=== PATIENT | male | born 1995 | race Caucasian/White ===

== ENCOUNTER 2017-03-07 14:11 | Emergency (ER) | payer OTHER ==
[~2017-03-07] VITALS: Ht 193 cm; Wt 63.5 kg
== END 2017-03-07 14:34 | disposition home or self-care (01) ==
LOC: ED 14:11
DX: Z00.8 Encounter for other general examination (principal)

== ENCOUNTER 2019-06-13 12:57 | Emergency (ER) | payer OTHER ==
[~2019-06-13] VITALS: Ht 193 cm; Wt 65.3 kg
[2019-06-13] MEDS ORDERED: DOXYCYCLINE MO100 M1 PO (13:06)
[2019-06-13] MEDS ORDERED: VENTOLIN HFA18 GM INH (15:08)
[2019-06-13] MEDS ORDERED: PREDNISONE20 MG PO (15:08)
== END 2019-06-13 15:42 | disposition home or self-care (01) ==
LOC: ED 12:57
DX: J40 Bronchitis, not specified as acute or chronic (principal); Z79.899 Other long term (current) drug therapy
CPT/HCPCS: 71046; 94640; 99283-25

== ENCOUNTER 2024-01-18 18:52 | Emergency (ER) | payer OTHER ==
[~2024-01-18] VITALS: Ht 193 cm; Wt 80.0 kg
[~2024-01-18 18:52] MED LIST: DOXYCYCLINE MO100 M1 PO; PREDNISONE20 MG PO; VENTOLIN HFA18 GM INH
[2024-01-18] MEDS ORDERED: DIPHTH,PERTUSS(ACELL),TET VAC 0.5 ML SYRINGE IM ONE (19:15)
[2024-01-18] MEDS ORDERED: AMOX TR-K CLV1 EAC1 PO (20:51)
[2024-01-18] MEDS ORDERED: AMOXICILLIN/CLAVULANATE K 875 MG HOME.PACK PO ONE (21:00)
[2024-01-18] MEDS ORDERED: HYDROCODONE BIT/ACETAMINOPHEN 5/325 MG 1 TAB HOME.PACK PO ONE (21:00)
[2024-01-18 21:07] VITALS: BP 123/66
== END 2024-01-18 21:08 | disposition home or self-care (01) ==
LOC: ED 18:52
DX: S61.032A Puncture wound without foreign body of left thumb without damage to nail, initial encounter (principal); Z79.52 Long term (current) use of systemic steroids
CPT/HCPCS: 73140; 90715; A9270

== ENCOUNTER 2025-04-03 12:36 | Observation (INO) | payer OTHER ==
[~2025-04-03] VITALS: Ht 193 cm; Wt 72.0 kg
[~2025-04-03 12:36] MED LIST changes: +AMOX TR-K CLV1 EAC1 PO
[2025-04-03 14:15] LABS: BASOPHILS 0.5 % (0.2-1.2); EOSINOPHILS 1.2 % (0.8-7.0); LYMPHOCYTES 24.0 % (21.8-53.1); MCH 30.5 PG (25.7-32.2); MCHC 34.2 g/dL (32.3-36.5); MCV 89.3 fL (79.0-92.2); MONOCYTES 9.2 % (5.3-12.2); NEUTROPHILS 64.8 % (34.0-67.9); RBC 4.78 M/uL (4.63-6.08)
[2025-04-03 14:29] LABS: ALT (SGPT) 87.0 U/L (14-59); AST (SGOT) 26.0 U/L (15-37); GLOMERULAR FILTRATION RATE,EST 122.0 mL/min (>60); PROTEIN, TOTAL 7.3 g/dL (6.4-8.2); UREA NITROGEN 12.0 mg/dL (7-18)
[2025-04-03] MEDS ORDERED: SODIUM CHLORIDE 0.9% 1,000 ML IV ONE (14:45)
[2025-04-03 15:48] LABS: BLOOD/HGB, URINE NEGATIVE (Negative); KETONE, URINE NEGATIVE (Negative); LEUK ESTERASE, URINE NEGATIVE (negative); NITRITE, URINE NEGATIVE (negative)
[2025-04-03] MEDS ORDERED: FAMOTIDINE 20 MG/ 2 ML VIAL IV ONE (16:15)
[2025-04-03] MEDS ORDERED: AMP/SULBACTAM SOD 3 GM in SODIUM CHLORIDE 0.9% 100 ML IV ONE (16:15)
[2025-04-03] MEDS ORDERED: MORPHINE SULFATE 10 MG/ML VIAL IV PRN (17:15)
[2025-04-03] MEDS ORDERED: LACTATED RINGER'S 1,000 ML IV SCH (17:15)
[2025-04-03] MEDS ORDERED: SEVOFLURANE 250 ML BTL INH ONE (17:29)
[2025-04-03 17:38] VITALS: BP 106/78
[2025-04-03] MEDS ORDERED: KETOROLAC TROMETHAMINE 30 MG/ML VIAL ONE (17:39)
[2025-04-03] MEDS ORDERED: SUGAMMADEX SODIUM 200 MG/2 ML ML ONE (17:39)
[2025-04-03] MEDS ORDERED: LIDOCAINE HCL 2% 5 ML SDV ONE (17:39)
[2025-04-03] MEDS ORDERED: ROCURONIUM BROMIDE 50 MG/5 ML SYR ONE (17:39)
[2025-04-03] MEDS ORDERED: MIDAZOLAM HCL 2 MG/2 ML VIAL ONE (17:39)
[2025-04-03] MEDS ORDERED: LIDOCAINE HCL 1% 30 ML SDV ONE (17:39)
[2025-04-03] MEDS ORDERED: DEXAMETHASONE SOD PHOS 4 MG/ML VIAL ONE (17:39)
[2025-04-03] MEDS ORDERED: fentaNYL citrate 100 MCG/2 ML VIAL ONE (17:40)
[2025-04-03] MEDS ORDERED: DEXTROSE 5% - LACTATED RINGERS 1,000 ML IV SCH (17:45)
[2025-04-03] MEDS ORDERED: HYDROmorphone HCL 1 MG/ML SYR IV PRN (17:45)
[2025-04-03] MEDS ORDERED: NALOXONE HCL 0.4 MG SYR IV PRN (19:00)
[2025-04-03] MEDS ORDERED: fentaNYL citrate 50 MCG/ML SDV IV PRN (19:00)
[2025-04-03] MEDS ORDERED: IBLOOD GLUCOSE TEST STRIP 1 EA TEST VI PRN (19:00)
[2025-04-03] MEDS ORDERED: TYLENOL EXTRA500 MG PO (19:10)
[2025-04-03] MEDS ORDERED: MOTRIN IB200 MG PO (19:10)
[2025-04-03] MEDS ORDERED: HYDROCODON-ACE1 EA10 PO (19:11)
[2025-04-03] MEDS ORDERED: IBUPROFEN 600 MG TAB PO PRN (19:30)
[2025-04-03] MEDS ORDERED: KETOROLAC TROMETHAMINE 30 MG/ML VIAL IV PRN (19:30)
[2025-04-03] MEDS ORDERED: ACETAMINOPHEN 500 MG TAB PO PRN (19:30)
[2025-04-03] MEDS ORDERED: HYDROCODONE/ACETA 5/325 TAB PO PRN (19:30)
[2025-04-03 20:27] VITALS: BP 133/71
[2025-04-03 20:30] VITALS: BP 133/71
[2025-04-03] MEDS ORDERED: FAMOTIDINE 20 MG/ 2 ML VIAL IV SCH (21:00)
[2025-04-03 21:20] VITALS: BP 124/66
[2025-04-03 22:36] VITALS: BP 131/71
[2025-04-04 01:40] VITALS: BP 126/76
[2025-04-04 02:02] VITALS: BP 126/76
[2025-04-04 06:23] VITALS: BP 124/76
[2025-04-04] MEDS ORDERED: AMOXICILLIN/CLAVULANATE K 500 MG TAB PO SCH (08:00)
[2025-04-04 08:51] VITALS: BP 112/70
[2025-04-04] MEDS ORDERED: IBUPROFEN600 MG PO (09:32)
[2025-04-04] MEDS ORDERED: HYDROCODON-ACE1 EA10 PO (09:32)
[2025-04-04] MEDS ORDERED: ACETAMINOPHEN500 MG PO (09:32)
--- NOTE | 2025-04-06 10:29 | PATH ---
[facility] [address] [facility] [place], [place] [address] Signed SPECIMEN(S): A APPENDIX SPECIMEN SOURCE: A. APPENDIX CLINICAL HISTORY: Acute appendicitis-gangrenous appendix. FINAL PATHOLOGIC DIAGNOSIS: Appendix, appendectomy: - Acute appendicitis with transmural necrosis and periappendicitis. DWS:xiao MICROSCOPIC EXAMINATION: Histologic sections of all submitted blocks are examined by light microscopy. These findings, together with the gross examination, support the pathologic diagnosis. GROSS DESCRIPTION: The specimen, labeled and designated "Gentis, T, " and designated on the requisition "gangrenous appendix," is received in formalin and consists of Specimen: Appendix with mesoappendix. Dimensions: 6.7 x 0.7 cm. Serosa: [place] and smooth with an area of dark red discoloration that is 3.1 cm in length and extends into the adjacent mesentery. Defect: Not grossly identified. Inking: Staple line is inked Blue. Mucosa: [place] and finely granular with a dusky red discoloration that corresponds to the serosal discoloration. Fecalith: Not grossly identified. Additional: None. Inspector Precision sections are submitted in (A1). FB (under the direct supervision of a pathologist) The Gross Description was prepared using a voice recognition system. The report was reviewed for accuracy; however, sound-alike word errors, addition and/or deletions may occur. If there is any question about this report, please contact Client Services. PERFORMING LABORATORY: Technical component was performed by [facility], [address] [place] [id number] (CLIA# [id number]). Professional interpretation was PATIENT NAME: MALINDA HAY PATHOLOGY DATE OF : [birth year] REPORT #: [id number] PHYSICIAN: WINNIEYTE PATHOLOGY PCP: OUMOU FLOR MD REPORT IS CONFIDENTIAL AND NOT TO BE RELEASED WITHOUT AUTHORIZATION [facility] [address] [facility] [place] [address] Signed performed by [facility]ology [facility], [address] [place] [address], [place] [address] (CLIA#: [id number]). Diagnostician: Chi Rider MD Pathologist Electronically Signed 04/06/2025 Copies: ~ PATIENT NAME: MALINDA HAY PATHOLOGY DATE OF : [birth year] REPORT #: [id number] PHYSICIAN: SAMANTHA PATHOLOGY PCP: OUMOU FLOR MD REPORT IS CONFIDENTIAL AND NOT TO BE RELEASED WITHOUT AUTHORIZATION
--- NOTE | 2025-04-06 11:20 | HP ---
[facility] [address] [place], [place] [address] Signed ADMISSION DATE: 04/03/2025 REASON FOR ADMISSION: Acute appendicitis. HISTORY OF PRESENT ILLNESS: This 29-year-old white man has had increasing pain since (today is Friday). This pain was not improving, though not particularly worsening and he presented to the emergency room, where he was evaluated thoroughly by Dr. Wood Wells. He was found to have a positive Rovsing sign and a CT scan was performed which confirmed high probability of appendicitis, specifically a mildly dilated appendix with adjacent fat stranding (minimal) and some free fluid in the right paracolic gutter. His white count is normal at 7.4, electrolytes are otherwise normal also, and urinalysis is negative. PAST MEDICAL HISTORY: Notable only for wisdom tooth extraction in the past. ALLERGIES: He has no known drug allergies. The patient has had no nausea or vomiting, and although his pain is not worsened and is not improved either. MEDICATIONS: At presentation, included 1. Doxycycline 100 mg p.o. #20, recently discontinued. 2. He has recent times been on Augmentin. 3. Prednisone 20 mg daily. 4. Albuterol. 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 He is . His accompanies him. He has no children. He lives in [place]. He uses alcohol occasionally and does not smoke, does use marijuana. REVIEW OF SYSTEMS: He denies any shortness of breath or chest pain. He has had no hematemesis or blood per rectum. Denies any shortness of breath at this time. PHYSICAL EXAMINATION: GENERAL: A very thin white man, who looks to be in no acute distress. Electronically Signed By: DEE PATTERSON MD 04/06/25 1120 PATIENT NAME: MALINDA HAY HISTORY AND PHYSICAL DATE OF : [birth year] REPORT #: [id number] PHYSICIAN: DEE PATTERSON MD PCP: OUMOU FLOR MD REPORT IS CONFIDENTIAL AND NOT TO BE RELEASED WITHOUT AUTHORIZATION [facility] [address] [place], [place] [address] Signed VITAL SIGNS: BMI is 19 kg/sq m; he is 6 feet 4 inches and weighs 70 kg. NECK: Trachea is midline. CHEST: Clear. HEART: Regular without murmur. ABDOMEN: Flat, nondistended. Rovsing sign is negative to my exam. There is mild tenderness at McBurney's point. EXTREMITIES: Show no clubbing, cyanosis, or edema. LABORATORY STUDIES: Showed a white count of 7.43, hematocrit 42.7. Chem profile essentially normal, glucose 108. Liver enzymes essentially normal, ALT is 87, lipase is 17. Urinalysis is normal. Review of his CT scan report is as noted previously, dilation of the appendix, and some mild periappendiceal fat stranding. My own review of the x-rays shows a normal lung merchant without evidence of infiltrate or pneumonia. The liver appears normal as does the spleen and pancreas. Left kidney and right kidney are symmetric and normal in appearance as is the pancreas, portal vein, superior mesenteric vessels, and aorta. The vena cava is full and normal. The gallbladder appears normal as is the transverse colon. An area suggestive of the appendix is noted. It appears to be medially oriented with some dilation. ASSESSMENT: The patient has clinical and radiographic evidence of appendicitis. I discussed the pathophysiology of problem with him and his . I have recommended appendectomy preferably via laparoscopic approach. I did discuss nonoperative approaches to this problem though I would not recommend that under the circumstances of his particular case. The risks of operation include, but are not limited to bleeding, infection, need for open procedure and other unforeseen complications including failure of diagnosis, misdiagnosis, and need for other indicated procedures. He understands all this and wished to proceed. MD BORA Salazar/MODL /[id number] Electronically Signed By: DEE PATTERSON MD 04/06/25 1120 PATIENT NAME: MALINDA HAY HISTORY AND PHYSICAL DATE OF : [birth year] REPORT #: [id number] PHYSICIAN: DEE PATTERSON MD PCP: OUMOU FLOR MD REPORT IS CONFIDENTIAL AND NOT TO BE RELEASED WITHOUT AUTHORIZATION [facility] [address] [place], [place] [address] Signed cc: Wood Wells MD Copies: WOOD WELLS MD ~ Electronically Signed By: DEE PATTERSON MD 04/06/25 1120 PATIENT NAME: MALINDA HAY HISTORY AND PHYSICAL DATE OF : [birth year] REPORT #: [id number] PHYSICIAN: DEE PATTERSON MD PCP: OUMOU FLOR MD REPORT IS CONFIDENTIAL AND NOT TO BE RELEASED WITHOUT AUTHORIZATION
--- NOTE | 2025-04-06 11:20 | OR ---
[facility] [address] [place], [place] [address] Signed DATE OF OPERATION: 04/03/2025 SURGEON: Dee Patterson MD PREOPERATIVE DIAGNOSIS: Acute appendicitis. POSTOPERATIVE DIAGNOSIS: Acute appendicitis with gangrenous changes. PROCEDURE: Laparoscopic appendectomy. ANESTHESIA: General endotracheal; Jaquelin Otero CRNA and local 10 mL of 0.25% Marcaine with epinephrine. INDICATION: This 29-year-old white man presented to the emergency room and thoroughly evaluated by with complaints of right lower abdominal pain which has been going on since . His symptoms have not worsened, they simply have not gotten better. He is noted to have a normal white count of 7.9. Other lab studies were normal including urinalysis. A CT scan was performed showing pelvic and perihepatic fluid and right paracolic gutter fluid as well as a dilated appendix. He has been fluid resuscitated, given intravenous antibiotics, and had to undergo appendectomy preferred by laparoscopic approach. The risk of bleeding, infection, missed diagnosis, failure of diagnosis, and need for other indicated procedures was reviewed with him and his . They understand and wished to proceed. FINDINGS: Indeed, there was acute appendicitis and the middle 3rd of the appendix had gangrenous changes including dark serosa and so on, but there was no evidence of perforation. There were clear paracolic gutter fluid and pelvic fluid which was suctioned free. Appendectomy performed without problem. Terminal ileum was normal as was the gallbladder and the liver. DESCRIPTION OF PROCEDURE: The patient was brought to the operating room, given a general endotracheal anesthetic. Preoperative antibiotic Unasyn had been given. Sequential compression device stockings were used and heparin subcutaneously administered. The abdomen was prepared with a Electronically Signed By: DEE PATTERSON MD 04/06/25 1120 PATIENT NAME: MALINDA HAY OPERATIVE REPORT DATE OF : [birth year] REPORT #: [id number] PHYSICIAN: DEE PATTERSON MD PCP: OUMOU AHN MD REPORT IS CONFIDENTIAL AND NOT TO BE RELEASED WITHOUT AUTHORIZATION [facility] [address] [place], [place] [address] Signed chlorhexidine solution and draped sterilely after clipping. Given his thin body habitus (BMI 19), an infraumbilical incision was made and using an open Tina cannula technique, pneumoperitoneum was achieved to a level of 14 mmHg of carbon dioxide gas. Intra-abdominal inspection showed no sign of ascites or carcinomatosis. The appendix was obscured from view at that time. There was clear paracolic gutter fluid and pelvic fluid however. An epigastric port was placed 12 mm in size under direct visualization and camera replaced to that site. With single hand manipulation, the terminal ileum could be identified as manifested by the antimesenteric fat pad of [place] and the cecum elevated and found was the appendix to be quite markedly inflamed and edematous and in the middle 3rd, dark colored consistent with a gangrenous change. A right lower quadrant 5 mm port was placed and using 2-hand manipulation, the appendix was elevated and a window was created between the appendix and mesoappendix with a minimal amount of cautery. The base of the appendix was transected, flushed with the cecum using an Endo-WHITNEY stapling device using a vascular load. This allowed for good visualization of the mesoappendix, which was similarly divided with a vascular load. There was no untoward bleeding. The appendix was withdrawn into the trocar at the umbilicus and extracted and removed and the irrigation undertaken the right lower quadrant. Both staple lines were completely hemostatic and optimally applied. Excess irrigation fluid as well as pelvic fluid and paracolic gutter fluid and right perihepatic fluid was suctioned free. The trocars removed under direct visualization showing no sign of bleeding. The infraumbilical fascial incision was reapproximated with interrupted 0 Vicryl suture. Irrigation was undertaken. A 10 mL of 0.25% Marcaine with epinephrine was injected locally. Steri-Strips were applied. The patient was ultimately extubated and transferred to the recovery room in good condition and suffered no complication. Sponge, needle, and instrument counts were correct x3. Dee Patterson MD /MODL /[id number] cc: Oumou Ahn MD Electronically Signed By: DEE PATTERSON MD 04/06/25 1120 PATIENT NAME: MALINDA HAY OPERATIVE REPORT DATE OF : [birth year] REPORT #: [id number] PHYSICIAN: DEE PATTERSON MD PCP: OUMOU AHN MD REPORT IS CONFIDENTIAL AND NOT TO BE RELEASED WITHOUT AUTHORIZATION [address] [address] Signed Copies: OUMOU AHN MD ~ Electronically Signed By: DEE PATTERSON MD 04/06/25 1120 PATIENT NAME: MALINDA HAY OPERATIVE REPORT DATE OF : [birth year] REPORT #: [id number] PHYSICIAN: DEE PATTERSON MD PCP: OUMOU AHN MD REPORT IS CONFIDENTIAL AND NOT TO BE RELEASED WITHOUT AUTHORIZATION
== END 2025-04-04 10:19 | disposition home or self-care (01) ==
LOC: ED 12:36 → MS 12:38
PROVIDERS: Emergency Medicine; ADMIT Surgery; ATTEND Surgery
PROC: 0DTJ4ZZ Resection of Appendix, Percutaneous Endoscopic Approach (ICD-10-PCS; principal; 2025-04-03 17:40)
DX: K35.891 Other acute appendicitis without perforation, with gangrene (principal)
CPT/HCPCS: 00840; 36415; 74177; 80053; 81003; 83690; 85025; 94762; 96365; 96375; 99285-25; A9270; J0295; J1100; J1885; J2003; J2250; J2270; J2704; J3010; J3490; J7030; J7121; Q9967